=== PATIENT | female | born 1980 | race Caucasian/White ===

== ENCOUNTER 2019-03-26 18:08 | Emergency (ER) | payer OTHER ==
--- NOTE | 2019-03-26 18:36 | PDOC ---
Rapid Medical Evaluation Chief Complaint: Cold Symptoms Time Seen by Provider: 03/26/19 18:31 Medical Evaluation: Allergies Allergy/AdvReac Type Severity Reaction Status Date / Time aztreonam [From Azactam] Allergy Verified 03/26/19 18:31 Cephalosporins Allergy Verified 03/26/19 18:31 clindamycin Allergy Verified 03/26/19 18:31 guaifenesin [From Robitussin] Allergy Verified 03/26/19 18:31 03/26/19 18:31 I have performed a brief in-person evaluation of this patient. The patient presents with a chief complaint of: h/o developmental disability sent in from [facility] for fever, nasal congestion x 1 day. pt given prophylactic Tamiflu from [facility] Pertinent physical exam findings: fever 101.2F I have ordered the following: deferred The patient will proceed to the ED for further evaluation. Discharge Disposition - Diagnosis Fever Qualifiers: Fever type: unspecified Qualified Code(s): R50.9 - Fever, unspecified - Discharge Dispostion Condition at time of disposition: Stable - Referrals - Patient Instructions - Post Discharge Activity
[2019-03-26 18:46] VITALS: BP 132/96; PULSE 120; TEMP 101.1; BMI 21.9
[2019-03-26] MEDS ORDERED: SODIUM CHLORIDE 0.9% 500 ML INFUS.BAG IV ONE (20:31)
[2019-03-26] MEDS ORDERED: ACETAMINOPHEN 1000 MG/100 ML VIAL (NON FORMULARY) IVPB ONE (20:31)
--- NOTE | 2019-03-26 21:08 | PDOC ---
History of Present Illness - General Chief Complaint: Cold Symptoms Stated Complaint: COLD SYMPTOMS/FEVER Time Seen by Provider: 03/26/19 18:31 - History of Present Illness Initial Comments: 39 y/o female with PMH significant for profound mental retardation, obstructive hydrocephalus, spastic quadriparesis cerebral palsy, epilepsy, presenting today with fever of 101 for the past 24 hours. Per nursing director, was noted to have this fever and therefore sent in to the hospital. Pt is non-verbal and not able to report any other symptoms. No nausea/vomiting noted. Pt still able to tolerate PO at meals. No change in stool in ostomy bag. No foul smelling urine noted. Mild cough. Past History - Past Medical History Allergies/Adverse Reactions: Allergies Allergy/AdvReac Type Severity Reaction Status Date / Time aztreonam [From Azactam] Allergy Verified 03/26/19 18:31 Cephalosporins Allergy Verified 03/26/19 18:31 clindamycin Allergy Verified 03/26/19 18:31 guaifenesin [From Robitussin] Allergy Verified 03/26/19 18:31 Anemia: Yes COPD: No Diabetes: Yes GI Disorders: Yes (ILEOSTOMY) Disorders: Yes (chronic UTI) Seizures: Yes Other medical history: CP, diplegia - Surgical History GI Surgery: Yes Neurologic Surgery: Yes (FRUIT CHECKER SHUNT) - Immunization History Immunization Up to Date: Yes - Psycho Social/Smoking Cessation Hx Smoking History: Never smoked Information on smoking cessation initiated: No Hx Alcohol Use: No Drug/Substance Use Hx: No Review of Systems - Review of Systems Comments:: ROS limited 2/2 non verbal patient. GENERAL/CONSTITUTIONAL: Reports fever. RESPIRATORY: Reports congestion. GASTROINTESTINAL: No nausea, vomiting._ SKIN: No rash_ *Physical Exam - Vital Signs Last Vital Signs Temp Pulse Resp BP Pulse Ox 101.1 F H 120 H 16 132/96 99 03/26/19 18:32 03/26/19 18:32 03/26/19 18:32 03/26/19 18:32 03/26/19 20:15 - Physical Exam GENERAL: Awake, no acute distress_ HEAD: No signs of trauma, normoc ephalic, atraumatic _ EYES: PERRLA, sclera anicteric, conjunctiva clear_ ENT: nares patent, oropharynx clear without exudates. No uvular deviation. Moist mucosa. TM's clear and non erythematous bilaterally. NECK: supple, no lymphadenopathy, JVD, or masses_ LUNGS: No distress, diffuse congestion in upper/lower lung west bilaterally HEART: Regular rate and rhythm, normal S1 and S2, no murmurs appreciated, peripheral pulses normal and equal bilaterally._ ABDOMEN: Soft, nontender. Ostomy bag in place with no bleeding or purulent discharge. EXTREMITIES: Atrophied, contracted. NEUROLOGICAL: Unable to assess. SKIN: Warm, Dry, normal turgor, no rashes or lesions noted_ ED Treatment Course - LABORATORY CBC & Chemistry Diagram: 03/26/19 22:00 03/26/19 22:00 - RADIOLOGY Radiology Studies Ordered: Category Date Time Status CHEST X-RAY PORTABLE* [RAD] Stat Radiology 03/26/19 21:03 Ordered - Medications Given in the ED: ED Medications Discontinued Medications Generic Name Dose Route Start Last Admin Trade Name Freq PRN Reason Stop Dose Admin Acetaminophen 1,000 mg 03/26/19 20:31 03/26/19 20:57 Ofirmev Injection - IVPB 03/26/19 20:32 1,000 mg ONCE ONE Administration Sodium Chloride 1,000 ml 03/26/19 20:31 03/26/19 20:57 Normal Saline - IV 03/26/19 20:32 1,000 ml ONCE ONE Administration Medical Decision Making - Medical Decision Making 39F hx of cerebral palsy, epilepsy, profound mental retardation, presenting with fever of 101 over the past 24 hours. -cbc, cmp, lactic -cxr -tylenol, fluids -ua, ucx 03/26/19 21:59 CXR shows no acute infiltrate or intra thoracic pathology. 03/26/19 22:10 Pt signed out to Dr. Roland pending labs. Discharge - Discharge Information Problems reviewed: Yes Clinical Impression/Diagnosis: Fever Qualifiers: Fever type: unspecified Qualified Code(s): R50.9 - Fever, unspecified Condition: Stable Disposition: [facility] - Follow up/Referral Referrals: Benito Ordoñez Jr [Primary Care Provider] - - Patient Discharge Instructions Additional Instructions: You were seen for the evaluation of fever. Flu negative. Urine analysis was negative for an infection. - Post Discharge Activity
[2019-03-26 22:16] LABS: BASO % 0.6 % (0-2.0); EOS % 1.6 % (0-4.5); HEMOGLOBIN 13.8 GM/dL (10.7-15.3); LYMPH % 23.1 % (8-40); MCH 20.2 pg (25.7-33.7); MCHC 31.4 g/dl (32.0-36.0); MEAN CELL VOLUME 64.3 fl (80-96); MEAN PLT VOLUME 8.9 fl (7.5-11.1); MONO % 21.1 % (3.8-10.2); NEUT % 53.6 % (42.8-82.8); PLATELET COUNT 300 K/MM3 (134-434); RBC 6.85 M/mm3 (3.60-5.2); RDW 15.1 % (11.6-15.6); WHITE BLOOD COUNT 7.9 K/mm3 (4.0-10.0)
--- NOTE | 2019-03-26 22:26 | PDOC ---
*Physical Exam - Vital Signs Last Vital Signs Temp Pulse Resp BP Pulse Ox 101.1 F H 120 H 16 132/96 99 03/26/19 18:32 03/26/19 18:32 03/26/19 18:32 03/26/19 18:32 03/26/19 20:15 - Physical Exam Received sign out from Dr. Mooney 39 yo F with a hx of developmental disability, profound intellectual disability , obstructive hydrocephalus, epilepsy, spastic quadriparesis, and chronic UTI who presented to the emergency department via EMS from [place] for 1 day of fever at a temperature of 101F with chest congestion. Per the aide, the patient was treated at [facility] with Tamiflu. At the time of sign out, patient had pending labs and studies ED Treatment Course - LABORATORY CBC & Chemistry Diagram: 03/26/19 22:00 03/26/19 22:00 - ADDITIONAL ORDERS Additional order review: 03/26/19 22:00 RBC 6.85 H MCV 64.3 L MCHC 31.4 L RDW 15.1 MPV 8.9 Neutrophils % 53.6 Lymphocytes % 23.1 Monocytes % 21.1 H Eosinophils % 1.6 Basophils % 0.6 - Medications Given in the ED: ED Medications Discontinued Medications Generic Name Dose Route Start Last Admin Trade Name Freq PRN Reason Stop Dose Admin Acetaminophen 1,000 mg 03/26/19 20:31 03/26/19 20:57 Ofirmev Injection - IVPB 03/26/19 20:32 1,000 mg ONCE ONE Administration Sodium Chloride 1,000 ml 03/26/19 20:31 03/26/19 20:57 Normal Saline - IV 03/26/19 20:32 1,000 ml ONCE ONE Administration Medical Decision Making - Medical Decision Making Laboratory Tests 03/26/19 03/26/19 03/26/19 20:00 22:00 22:00 WBC 7.9 RBC 6.85 H Hgb 13.8 Hct 44.0 MCV 64.3 L MCH 20.2 L MCHC 31.4 L RDW 15.1 Plt Count 300 MPV 8.9 Absolute Neuts (auto) 4.2 Neutrophils % 53.6 Neutrophils % (Manual) 55.6 Band Neutrophils % 0.9 Lymphocytes % 23.1 Lymphocytes % (Manual) 16.7 Monocytes % 21.1 H Monocytes % (Manual) 12 H Eosinophils % 1.6 Eosinophils % (Manual) 6.5 H Basophils % 0.6 Basophils % (Manual) 0.0 Myelocytes % (Man) 0 Promyelocytes % (Man) 0 Blast Cells % (Manual) 0 Nucleated RBC % 0 Metamyelocytes 0 Hypochromia 2+ Polychromasia 0 Poikilocytosis 3+ Anisocytosis 3+ Microcytosis 3+ Macrocytosis 0 Sodium 138 Potassium 3.9 Chloride 108 H Carbon Dioxide 21 Anion Gap 9 BUN 11.6 Creatinine 0.9 Est GFR (CKD-EPI)AfAm 94.01 Est GFR (CKD-EPI)NonAf 81.11 Random Glucose 129 H Lactic Acid Calcium 8.5 Total Bilirubin 0.1 L AST 40 H ALT 44 Alkaline Phosphatase 110 Total Protein 7.6 Albumin 3.2 L Urine Color Urine Appearance Urine pH Ur Specific [place] Urine Protein Urine Glucose (UA) Urine Ketones Urine Blood Urine Nitrite Urine Bilirubin Urine Urobilinogen Ur Leukocyte Esterase Urine WBC (Auto) Urine RBC (Auto) Urine Casts (Auto) U Epithel Cells (Auto) Urine Bacteria (Auto) Influenza A (Rapid) Negative Influenza B (Rapid) Negative 03/26/19 03/27/19 22:00 00:05 WBC RBC Hgb Hct MCV MCH MCHC RDW Plt Count MPV Absolute Neuts (auto) Neutrophils % Neutrophils % (Manual) Band Neutrophils % Lymphocytes % Lymphocytes % (Manual) Monocytes % Monocytes % (Manual) Eosinophils % Eosinophils % (Manual) Basophils % Basophils % (Manual) Myelocytes % (Man) Promyelocytes % (Man) Blast Cells % (Manual) Nucleated RBC % Metamyelocytes Hypochromia Polychromasia Poikilocytosis Anisocytosis Microcytosis Macrocytosis Sodium Potassium Chloride Carbon Dioxide Anion Gap BUN Creatinine Est GFR (CKD-EPI)AfAm Est GFR (CKD-EPI)NonAf Random Glucose Lactic Acid 1.7 Calcium Total Bilirubin AST ALT Alkaline Phosphatase Total Protein Albumin Urine Color Yellow Urine Appearance Clear Urine pH 6.0 Ur Specific [place] 1.012 Urine Protein Negative Urine Glucose (UA) Negative Urine Ketones Negative Urine Blood Trace Urine Nitrite Negative Urine Bilirubin Negative Urine Urobilinogen 0.2 Ur Leukocyte Esterase Negative Urine WBC (Auto) 3 Urine RBC (Auto) 10 Urine Casts (Auto) 2 U Epithel Cells (Auto) 12.0 Urine Bacteria (Auto) 32.3 Influenza A (Rapid) Influenza B (Rapid) UA is negative for UTI. CXR within normal limits. Patient likely has viral syndrome on the account her influenza tests are negative. Will discharge back to [facility]. Discharge - Discharge Information Problems reviewed: Yes Clinical Impression/Diagnosis: Fever Qualifiers: Fever type: unspecified Qualified Code(s): R50.9 - Fever, unspecified Condition: Stable [facility] - Follow up/Referral Referrals: Benito Ordoñez Jr [Primary Care Provider] - - Patient Discharge Instructions Additional Instructions: You were seen for the evaluation of fever. Flu negative. Urine analysis was negative for an infection. - Post Discharge Activity
[2019-03-26 22:53] LABS: ALBUMIN 3.2 g/dl (3.4-5.0); BILIRUBIN,TOTAL 0.1 mg/dL (0.2-1); BLOOD UREA NITROGEN 11.6 mg/dL (7-18); CALCIUM 8.5 mg/dL (8.5-10.1); CREATININE 0.9 mg/dL (0.55-1.3); POTASSIUM 3.9 mmol/L (3.5-5.1); TOT PROT 7.6 g/dl (6.4-8.2)
[2019-03-26 23:36] LABS: ANISOCYTOSIS 3+; MACROCYTOSIS 0
--- NOTE | 2019-03-26 23:59 | PDOC ---
Documentation entered by Kamlesh De La Paz SCRIBE, acting as scribe for Cherelle Recio MD. Cherelle Recio MD: This documentation has been prepared by the Ana Cristina rene Xhesika, SCRIBE, under my direction and personally reviewed by me in its entirety. I confirm that the documentation accurately reflects all work, treatment, procedures, and medical decision making performed by me. Attending Attestation - Resident Resident Name: Napoleon Mooney - ED Attending Attestation I have performed the following: I have examined & evaluated the patient, The case was reviewed & discussed with the resident, I agree w/resident's findings & plan, Exceptions are as noted - HPI HPI: 03/26/19 21:23 The patient is a 39 year old female with a significant PMH of developmental disability, profound mental retardation, obstructive hydrocephalus, spastic quadriparesis cerebral palsy, epilepsy, and chronic UTI who presents to the emergency department [facility] from [place] for 1 day of fever 101 and chest congestion. Per aide at bedside the patient was treated at [facility] [place] with Tamiflu. Aide denies decreased activity. Aide denies chest pain, shortness of breath, headache and dizziness. Denies chills, nausea, vomiting, diarrhea and constipation. Allergies: Aztreonam, Cephalosporins, clindamycin, guaifenesin Past surgical history: REIMBURSEMENT REPRESENTATIVE shunt - Physicial Exam PE: 03/26/19 23:56 39-year-old female who lives at the [facility] [place] facility presents with URI symptoms and fever Head no acute trauma Lungs clear to auscultation bilaterally CVS tachycardia Abdomen soft Skin warm and dry Neuro alert, nonverbal at baseline - Medical Decision Making 03/26/19 23:58 39-year-old female sent from [place] to evaluate for URI symptoms and fever Negative influenza swab, she had already been given Tamiflu eye regimen Chest x-ray did not show any infiltrates CBC is unremarkable with no leukocytosis pt is 96% pulse on on room air,lungs cta b/l 03/26/19 23:59 Chemistries reviewed and glucose is equal to 127, AST slightly elevated at 40 but her electrolytes and liver function tests and renal function are unremarkable 03/27/19 00:00 Lactic acid is normal at 1.7 03/27/19 00:50 UA is negative: there is no leukocytes, no nitrates ,no significant WBCs Discussed the findings with the attendant who accompanied the resident from [facility] We will discharge back to [facility] Viral syndrome, URI
[2019-03-27 00:37] LABS: HYALINE CASTS 2 /lpf (0-8); URINE APPEARANCE CLEAR; URINE BACTERIA 32.3 /hpf (NEGATIVE); URINE BILIRUBIN NEGATIVE (NEGATIVE); URINE COLOR YELLOW; URINE GLUCOSE (UA) NEGATIVE (NEGATIVE); URINE KETONE NEGATIVE (NEGATIVE); URINE LEUK ESTERASE NEGATIVE (NEGATIVE); URINE NITRITE NEGATIVE (NEGATIVE); URINE PROTEIN NEGATIVE (NEGATIVE); URINE RBC 10 /hpf (0-4); URINE UROBILINOGEN 0.2 mg/dL (0.2-1.0); URINE WBC 3 /hpf (0-5)
== END 2019-03-27 01:39 ==
LOC: JER 18:08 → SUPCPDRO 18:08 → JER 03-27 01:39
DX: J06.9 Acute upper respiratory infection, unspecified (principal); B97.89 Other viral agents as the cause of diseases classified elsewhere; G80.0 Spastic quadriplegic cerebral palsy; F73 Profound intellectual disabilities; G40.909 Epilepsy, unspecified, not intractable, without status epilepticus; G91.1 Obstructive hydrocephalus; Z87.440 Personal history of urinary (tract) infections; Z93.2 Ileostomy status; Z98.2 Presence of cerebrospinal fluid drainage device
CPT/HCPCS: 36415; 71045-TC-FY; 80053; 81003; 83605; 85025; 87086; 87186; 87804; 99283-25; J0131

== ENCOUNTER 2021-03-12 14:44 | Emergency (ER) | payer OTHER ==
[2021-03-12 15:14] VITALS: TEMP 98.6; BMI 19.7
[2021-03-12 20:31] VITALS: BP 130/86; PULSE 98
== END 2021-03-12 18:30 | disposition home or self-care (01) ==
LOC: JER 14:44
DX: T82.594A Other mechanical complication of infusion catheter, initial encounter (principal)
CPT/HCPCS: 99283-25

== ENCOUNTER 2021-08-17 12:59 | Inpatient (IN) | payer OTHER ==
[2021-08-17] MEDS ORDERED: ACETAMINOPHEN 1000 MG/100 ML BAG IVPB ONE (13:52)
[2021-08-17] MEDS ORDERED: ACETAMINOPHEN INJECTION 100 ML IVPB ONE (13:54)
[2021-08-17] MEDS ORDERED: IBUPROFEN 800 MG/8 ML IJ IVPB ONE ×2 (13:59→14:12)
[2021-08-17] MEDS ORDERED: SODIUM CHLORIDE 1,000 ML IV ONE (14:00)
[2021-08-17] MEDS ORDERED: DEXAMETHASONE SOD PHOSPHATE 4 MG/1 ML VIAL IVPUSH ONE (14:27)
[2021-08-17] MEDS ORDERED: DEXAMETHASONE SOD PHOSPHATE 4 MG/1 ML VIAL ONE (14:42)
[2021-08-17 14:55] LABS: INR 1.24 (0.83-1.09); PROTHROMBIN TIME (PATIENT) 14.3 SEC (9.7-13.0)
[2021-08-17 14:57] LABS: ACTIVATED PTT 44.8 SECONDS (25.2-36.5)
[2021-08-17 15:00] LABS: VENOUS BASE EXCESS -1.6 mmol/L (-2-2); VENOUS PCO2 50.6 mmHg (38-52); VENOUS PH 7.316 (7.310-7.410)
[2021-08-17 15:06] LABS: LACTIC ACID 2.4 mmol/L (0.4-2.0)
[2021-08-17 15:10] LABS: BASO % 0.5 % (0-2.0); HEMATOCRIT 42.8 % (32.4-45.2); HEMOGLOBIN 13.3 GM/dL (10.7-15.3); LYMPH % 5.8 % (8-40); MCHC 31.1 g/dl (32.0-36.0); MEAN CELL VOLUME 58.4 fl (80-96); MEAN PLT VOLUME 9.2 fl (7.5-11.1); MONO % 10.8 % (3.8-10.2); NEUT % 82.9 % (42.8-82.8); PLATELET COUNT 433 10^3/uL (134-434); RDW 20.9 % (11.6-15.6)
[2021-08-17 15:12] LABS: MCH 18.2 pg (25.7-33.7); RBC 7.32 M/mm3 (3.60-5.2)
[2021-08-17 15:13] LABS: EPI CELLS 5 /uL (0-25.1); HYALINE CASTS 1 /uL (0-3.1); URINE APPEARANCE CLEAR; URINE BACTERIA 2576 /uL (0-1359); URINE BILIRUBIN NEGATIVE (NEGATIVE); URINE COLOR YELLOW; URINE GLUCOSE (UA) NEGATIVE (NEGATIVE); URINE KETONE TRACE (NEGATIVE); URINE LEUK ESTERASE 2+ (NEGATIVE); URINE NITRITE POSITIVE (NEGATIVE); URINE PROTEIN 1+ (NEGATIVE); URINE RBC 39 /uL (0-23.9); URINE UROBILINOGEN 0.2 mg/dL (0.2-1.0); URINE WBC 332 /uL (0-25.8)
[2021-08-17] MEDS ORDERED: VANCOMYCIN 1 GM in D5W (PRE-DOCKED) 1,000 MG/250 ML IVPB ONE (15:35)
[2021-08-17] MEDS ORDERED: AZITHROMYCIN IVPB 500 MG in DEXTROSE 5%-WATER - 250 ML IVPB ONE (15:35)
[2021-08-17 15:38] LABS: CALCIUM 9.7 mg/dL (8.5-10.1)
[2021-08-17 15:39] LABS: ALBUMIN 3.5 g/dl (3.4-5.0)
[2021-08-17 15:41] LABS: BILIRUBIN,DIRECT 0.1 mg/dL (0.0-0.2)
[2021-08-17 15:42] LABS: BILIRUBIN,TOTAL 0.2 mg/dL (0.2-1); CREATININE 0.6 mg/dL (0.55-1.3); TOT PROT 8.8 g/dl (6.4-8.2)
[2021-08-17] MEDS ORDERED: AZITHROMYCIN IVPB 500 MG/250 ML BAG IVPB ONE (16:00)
[2021-08-17] MEDS ORDERED: VANCOMYCIN 1 GRAM (PRE-DOCKED) 1,000 MG/250 ML BAG IVPB ONE (16:16)
[2021-08-17] MEDS ORDERED: SODIUM CHLORIDE 1,000 ML IV SCH (16:45)
[2021-08-17 17:23] LABS: ANISOCYTOSIS 3+; MACROCYTOSIS 1+; OVALOCYTE 1+; PLATELET ESTIMATE INCREASED; TARGET CELLS 1+
[2021-08-17] MEDS ORDERED: dilTIAZem HCL 30 MG TABLET ONE ×2 (18:09→18:14)
[2021-08-17] MEDS ORDERED: dilTIAZem HCL 60 MG TABLET ONE ×2 (18:09→18:13)
[2021-08-17] MEDS: INSULIN SLIDING SCALE (NOVOLOG) 1 VIAL SQ SCH (22:54)
[2021-08-18] MEDS: INSULIN SLIDING SCALE (NOVOLOG) 1 VIAL SQ SCH ×4 (07:40→22:55)
[2021-08-18 07:50] LABS: MCHC 31.1 g/dl (32.0-36.0); MEAN PLT VOLUME 9.2 fl (7.5-11.1); PLATELET COUNT 357 10^3/uL (134-434); RDW 21.2 % (11.6-15.6); WHITE BLOOD COUNT 20.9 K/mm3 (4.0-10.0)
[2021-08-18 07:51] LABS: MCH 18.4 pg (25.7-33.7); RBC 7.63 M/mm3 (3.60-5.2)
[2021-08-18 08:20] LABS: ALBUMIN 3.2 g/dl (3.4-5.0); BLOOD UREA NITROGEN 17.5 mg/dL (7-18); CALCIUM 9.7 mg/dL (8.5-10.1); MAGNESIUM 2.3 mg/dL (1.8-2.4)
[2021-08-18 08:22] LABS: CREATININE 0.4 mg/dL (0.55-1.3)
[2021-08-18 08:23] LABS: BILIRUBIN,TOTAL 0.3 mg/dL (0.2-1); PHOSPHOROUS 3.1 mg/dL (2.5-4.9)
[2021-08-18 08:25] LABS: TOT PROT 8.6 g/dl (6.4-8.2)
[2021-08-18] MEDS ORDERED: DEXAMETHASONE SOD PHOSPHATE 10 MG/1 ML VIAL ONE (08:46)
[2021-08-18] MEDS ORDERED: ENOXAPARIN NA (PORCINE) 30 MG/0.3 ML DISP.SYRIN SQ ONE (08:46)
[2021-08-18] MEDS: DEXAMETHASONE SOD PHOSPHATE 10 MG/1 ML VIAL IVPUSH SCH (09:36)
[2021-08-18] MEDS: ENOXAPARIN NA (PORCINE) 30 MG/0.3 ML DISP.SYRIN SQ SCH (09:36)
[2021-08-18 09:48] LABS: ANISOCYTOSIS 3+; MACROCYTOSIS 0; OVALOCYTE 1+; TARGET CELLS 1+
[2021-08-18] MEDS ORDERED: VANCOMYCIN 1 GM in D5W (PRE-DOCKED) 1,000 MG/250 ML IVPB SCH (10:00)
[2021-08-18] MEDS ORDERED: ACETAMINOPHEN 1000 MG/100 ML BAG IVPB PRN ×2 (11:51→13:18)
[2021-08-18 13:00] VITALS: BMI 14.1
[2021-08-18] MEDS ORDERED: REMDESIVIR 200 MG in SODIUM CHLORIDE 250 ML IVPB ONE (13:00)
[2021-08-18] MEDS ORDERED: SODIUM CHLORIDE IVPB ONE (13:45)
[2021-08-18] MEDS ORDERED: REMDESIVIR IVPB ONE (13:45)
[2021-08-19] MEDS: INSULIN SLIDING SCALE (NOVOLOG) 1 VIAL SQ SCH ×4 (06:38→23:27)
[2021-08-19 09:03] LABS: BASO % 0.1 % (0-2.0); HEMATOCRIT 35.6 % (32.4-45.2); LYMPH % 7.6 % (8-40); MCHC 30.8 g/dl (32.0-36.0); MEAN CELL VOLUME 59.3 fl (80-96); NEUT % 85.3 % (42.8-82.8); PLATELET COUNT 366 10^3/uL (134-434); RDW 21.1 % (11.6-15.6)
[2021-08-19 09:15] LABS: MCH 18.3 pg (25.7-33.7)
[2021-08-19 09:16] LABS: ALBUMIN 2.5 g/dl (3.4-5.0); CALCIUM 8.9 mg/dL (8.5-10.1)
[2021-08-19 09:19] LABS: BLOOD UREA NITROGEN 33.1 mg/dL (7-18)
[2021-08-19 09:21] LABS: CREATININE 0.5 mg/dL (0.55-1.3)
[2021-08-19 09:22] LABS: TOT PROT 6.9 g/dl (6.4-8.2)
[2021-08-19 09:23] LABS: BILIRUBIN,TOTAL 0.3 mg/dL (0.2-1)
[2021-08-19] MEDS: DEXAMETHASONE SOD PHOSPHATE 10 MG/1 ML VIAL IVPUSH SCH (10:48)
[2021-08-19] MEDS: ENOXAPARIN NA (PORCINE) 30 MG/0.3 ML DISP.SYRIN SQ SCH (10:53)
[2021-08-19] MEDS: POLYETHYLENE GLYCOL (HEALTHYLAX) 3350 17 GM PACKET GT SCH (10:54)
[2021-08-19] MEDS: SODIUM CHLORIDE IVPB SCH (15:05)
[2021-08-19] MEDS: REMDESIVIR IVPB SCH (15:05)
[2021-08-19] MEDS: DEXTROSE 5% IVPB SCH (17:23)
[2021-08-19] MEDS: GENTAMICIN IVPB SCH (17:23)
[2021-08-19] MEDS: WATER IVPB SCH (17:23)
[2021-08-20] MEDS ORDERED: INSULIN (NOVOLOG) ASPART 100 UNITS/ML 10ML VIAL ONE ×2 (06:59→10:34)
[2021-08-20] MEDS: INSULIN SLIDING SCALE (NOVOLOG) 1 VIAL SQ SCH ×4 (07:03→21:39)
[2021-08-20] MEDS: ENOXAPARIN NA (PORCINE) 30 MG/0.3 ML DISP.SYRIN SQ SCH (10:08)
[2021-08-20] MEDS: DEXAMETHASONE SOD PHOSPHATE 10 MG/1 ML VIAL IVPUSH SCH (10:08)
[2021-08-20] MEDS: POLYETHYLENE GLYCOL (HEALTHYLAX) 3350 17 GM PACKET GT SCH (10:09)
[2021-08-20 10:51] LABS: BASO % 0.1 % (0-2.0); HEMATOCRIT 36.4 % (32.4-45.2); HEMOGLOBIN 11.2 GM/dL (10.7-15.3); LYMPH % 9.1 % (8-40); MCHC 30.9 g/dl (32.0-36.0); MEAN PLT VOLUME 8.7 fl (7.5-11.1); MONO % 7.8 % (3.8-10.2); PLATELET COUNT 347 10^3/uL (134-434); RBC 6.27 M/mm3 (3.60-5.2); RDW 20.7 % (11.6-15.6); WHITE BLOOD COUNT 11.3 K/mm3 (4.0-10.0)
[2021-08-20 10:52] LABS: MCH 17.9 pg (25.7-33.7)
[2021-08-20 11:20] LABS: CALCIUM 9.2 mg/dL (8.5-10.1)
[2021-08-20 11:21] LABS: ALBUMIN 2.7 g/dl (3.4-5.0); BLOOD UREA NITROGEN 29.2 mg/dL (7-18)
[2021-08-20 11:23] LABS: CREATININE 0.4 mg/dL (0.55-1.3)
[2021-08-20 11:25] LABS: BILIRUBIN,TOTAL 0.2 mg/dL (0.2-1); TOT PROT 6.9 g/dl (6.4-8.2)
[2021-08-20] MEDS: SODIUM CHLORIDE IVPB SCH (14:07)
[2021-08-20] MEDS: DEXTROSE 5% IVPB SCH (14:07)
[2021-08-20] MEDS: GENTAMICIN IVPB SCH (14:07)
[2021-08-20] MEDS: REMDESIVIR IVPB SCH (14:07)
[2021-08-20] MEDS: WATER IVPB SCH (14:07)
[2021-08-21] MEDS: INSULIN SLIDING SCALE (NOVOLOG) 1 VIAL SQ SCH ×4 (06:21→21:39)
[2021-08-21] MEDS: DEXAMETHASONE SOD PHOSPHATE 10 MG/1 ML VIAL IVPUSH SCH (09:48)
[2021-08-21] MEDS: POLYETHYLENE GLYCOL (HEALTHYLAX) 3350 17 GM PACKET GT SCH (09:48)
[2021-08-21] MEDS: ENOXAPARIN NA (PORCINE) 30 MG/0.3 ML DISP.SYRIN SQ SCH (09:48)
[2021-08-21] MEDS: REMDESIVIR IVPB SCH (14:01)
[2021-08-21] MEDS: SODIUM CHLORIDE IVPB SCH (14:01)
[2021-08-21] MEDS: GENTAMICIN IVPB SCH (14:01)
[2021-08-21] MEDS: DEXTROSE 5% IVPB SCH (14:01)
[2021-08-21] MEDS: WATER IVPB SCH (14:01)
[2021-08-21] MEDS ORDERED: INSULIN (NOVOLOG) ASPART 100 UNITS/ML 10ML VIAL ONE (21:27)
[2021-08-22] MEDS: INSULIN SLIDING SCALE (NOVOLOG) 1 VIAL SQ SCH ×4 (07:01→21:36)
[2021-08-22] MEDS: DEXAMETHASONE SOD PHOSPHATE 10 MG/1 ML VIAL IVPUSH SCH (11:12)
[2021-08-22] MEDS: ENOXAPARIN NA (PORCINE) 30 MG/0.3 ML DISP.SYRIN SQ SCH (11:13)
[2021-08-22] MEDS: POLYETHYLENE GLYCOL (HEALTHYLAX) 3350 17 GM PACKET GT SCH (11:13)
[2021-08-22] MEDS: SODIUM CHLORIDE IVPB SCH (14:12)
[2021-08-22] MEDS: REMDESIVIR IVPB SCH (14:12)
[2021-08-23] MEDS: INSULIN SLIDING SCALE (NOVOLOG) 1 VIAL SQ SCH ×4 (06:43→21:56)
[2021-08-23] MEDS: ENOXAPARIN NA (PORCINE) 30 MG/0.3 ML DISP.SYRIN SQ SCH (09:37)
[2021-08-23] MEDS: POLYETHYLENE GLYCOL (HEALTHYLAX) 3350 17 GM PACKET GT SCH (09:37)
[2021-08-23] MEDS: DEXAMETHASONE SOD PHOSPHATE 10 MG/1 ML VIAL IVPUSH SCH (09:37)
[2021-08-23 12:11] LABS: HEMATOCRIT 43.7 % (32.4-45.2); HEMOGLOBIN 13.5 GM/dL (10.7-15.3); MCHC 30.9 g/dl (32.0-36.0); MEAN CELL VOLUME 58.1 fl (80-96); MEAN PLT VOLUME 8.7 fl (7.5-11.1); PLATELET COUNT 395 10^3/uL (134-434)
[2021-08-23 12:17] LABS: MCH 17.9 pg (25.7-33.7); RBC 7.52 M/mm3 (3.60-5.2)
[2021-08-23 12:28] LABS: BLOOD UREA NITROGEN 24.1 mg/dL (7-18); CALCIUM 9.3 mg/dL (8.5-10.1)
[2021-08-23 12:29] LABS: ALBUMIN 2.9 g/dl (3.4-5.0)
[2021-08-23 12:32] LABS: CREATININE 0.4 mg/dL (0.55-1.3)
[2021-08-23 12:33] LABS: BILIRUBIN,TOTAL 0.3 mg/dL (0.2-1); TOT PROT 7.2 g/dl (6.4-8.2)
[2021-08-23 14:05] LABS: ANISOCYTOSIS 3+; MACROCYTOSIS 0; TARGET CELLS 1+
[2021-08-23] MEDS ORDERED: INSULIN (NOVOLOG) ASPART 100 UNITS/ML 10ML VIAL ONE (21:14)
[2021-08-24] MEDS: INSULIN SLIDING SCALE (NOVOLOG) 1 VIAL SQ SCH ×4 (07:02→21:48)
[2021-08-24] MEDS: DEXAMETHASONE SOD PHOSPHATE 10 MG/1 ML VIAL IVPUSH SCH (10:10)
[2021-08-24] MEDS: POLYETHYLENE GLYCOL (HEALTHYLAX) 3350 17 GM PACKET GT SCH (10:10)
[2021-08-24] MEDS: ENOXAPARIN NA (PORCINE) 30 MG/0.3 ML DISP.SYRIN SQ SCH (10:10)
[2021-08-24] MEDS ORDERED: INSULIN (NOVOLOG) ASPART 100 UNITS/ML 10ML VIAL ONE (11:44)
[2021-08-25] MEDS: INSULIN SLIDING SCALE (NOVOLOG) 1 VIAL SQ SCH ×4 (06:01→23:01)
[2021-08-25] MEDS: DEXAMETHASONE SOD PHOSPHATE 10 MG/1 ML VIAL IVPUSH SCH (10:35)
[2021-08-25] MEDS: MULTIVIT-MINERALS ORAL LIQUID GT SCH (11:19)
[2021-08-25] MEDS: POLYETHYLENE GLYCOL (HEALTHYLAX) 3350 17 GM PACKET GT SCH (11:19)
[2021-08-26] MEDS: INSULIN SLIDING SCALE (NOVOLOG) 1 VIAL SQ SCH ×4 (06:45→22:32)
[2021-08-26] MEDS: DEXAMETHASONE SOD PHOSPHATE 10 MG/1 ML VIAL IVPUSH SCH (10:40)
[2021-08-26] MEDS: POLYETHYLENE GLYCOL (HEALTHYLAX) 3350 17 GM PACKET GT SCH (11:31)
[2021-08-26] MEDS: MULTIVIT-MINERALS ORAL LIQUID GT SCH (11:31)
[2021-08-26] MEDS ORDERED: INSULIN (NOVOLOG) ASPART 100 UNITS/ML 10ML VIAL ONE ×2 (12:00→22:31)
[2021-08-27] MEDS: INSULIN SLIDING SCALE (NOVOLOG) 1 VIAL SQ SCH ×4 (06:37→23:02)
[2021-08-27] MEDS: ENOXAPARIN NA (PORCINE) 30 MG/0.3 ML DISP.SYRIN SQ SCH (10:26)
[2021-08-27] MEDS: POLYETHYLENE GLYCOL (HEALTHYLAX) 3350 17 GM PACKET GT SCH (10:27)
[2021-08-27] MEDS: MULTIVIT-MINERALS ORAL LIQUID GT SCH (10:27)
[2021-08-28] MEDS: INSULIN SLIDING SCALE (NOVOLOG) 1 VIAL SQ SCH ×4 (06:25→21:35)
[2021-08-28] MEDS: ENOXAPARIN NA (PORCINE) 30 MG/0.3 ML DISP.SYRIN SQ SCH (10:21)
[2021-08-28] MEDS: POLYETHYLENE GLYCOL (HEALTHYLAX) 3350 17 GM PACKET GT SCH (10:21)
[2021-08-28] MEDS: MULTIVIT-MINERALS ORAL LIQUID GT SCH (10:22)
[2021-08-28] MEDS: AMINO ACIDS/PROTEIN HYDROLYS 30 ML LIQUID.PKT GT SCH (17:27)
[2021-08-29] MEDS: INSULIN SLIDING SCALE (NOVOLOG) 1 VIAL SQ SCH ×4 (08:03→21:06)
[2021-08-29] MEDS: AMINO ACIDS/PROTEIN HYDROLYS 30 ML LIQUID.PKT GT SCH ×2 (11:33→17:46)
[2021-08-29] MEDS: POLYETHYLENE GLYCOL (HEALTHYLAX) 3350 17 GM PACKET GT SCH (11:34)
[2021-08-29] MEDS: ENOXAPARIN NA (PORCINE) 30 MG/0.3 ML DISP.SYRIN SQ SCH (11:34)
[2021-08-29] MEDS: MULTIVIT-MINERALS ORAL LIQUID GT SCH (11:34)
[2021-08-30] MEDS: INSULIN SLIDING SCALE (NOVOLOG) 1 VIAL SQ SCH ×4 (06:15→22:15)
[2021-08-30] MEDS: AMINO ACIDS/PROTEIN HYDROLYS 30 ML LIQUID.PKT GT SCH ×2 (09:00→17:10)
[2021-08-30] MEDS: ENOXAPARIN NA (PORCINE) 30 MG/0.3 ML DISP.SYRIN SQ SCH (09:27)
[2021-08-30] MEDS: MULTIVIT-MINERALS ORAL LIQUID GT SCH (09:28)
[2021-08-30] MEDS: POLYETHYLENE GLYCOL (HEALTHYLAX) 3350 17 GM PACKET GT SCH (09:28)
[2021-08-31] MEDS: INSULIN SLIDING SCALE (NOVOLOG) 1 VIAL SQ SCH ×3 (06:55→16:47)
[2021-08-31] MEDS: AMINO ACIDS/PROTEIN HYDROLYS 30 ML LIQUID.PKT GT SCH ×2 (08:47→17:07)
[2021-08-31] MEDS: ENOXAPARIN NA (PORCINE) 30 MG/0.3 ML DISP.SYRIN SQ SCH (09:11)
[2021-08-31] MEDS: POLYETHYLENE GLYCOL (HEALTHYLAX) 3350 17 GM PACKET GT SCH (09:12)
[2021-08-31] MEDS: MULTIVIT-MINERALS ORAL LIQUID GT SCH (09:12)
[2021-08-31 14:46] VITALS: BP 110/72; PULSE 76; TEMP 98.9
== END 2021-08-31 17:59 | disposition home or self-care (01) | DRG 720 ==
LOC: JER 12:59 → JERBED 15:47 → MERGE 15:47 → J6S 08-18 11:43
PROVIDERS: ADMIT Internal Medicine
PROC: XW033E5 Introduction of Remdesivir Anti-infective into Peripheral Vein, Percutaneous Approach, New Technology Group 5 (ICD-10-PCS; principal; 2021-08-18)
DX: A41.89 Other specified sepsis (principal); U07.1 COVID-19; J96.01 Acute respiratory failure with hypoxia; J96.02 Acute respiratory failure with hypercapnia; L89.153 Pressure ulcer of sacral region, stage 3; J12.82 Pneumonia due to coronavirus disease 2019; R53.2 Functional quadriplegia; F73 Profound intellectual disabilities; Z93.1 Gastrostomy status; R64 Cachexia; N39.0 Urinary tract infection, site not specified; E87.2 Acidosis; D56.9 Thalassemia, unspecified; Z98.2 Presence of cerebrospinal fluid drainage device; G40.909 Epilepsy, unspecified, not intractable, without status epilepticus; B96.20 Unspecified Escherichia coli [E. coli] as the cause of diseases classified elsewhere; G80.9 Cerebral palsy, unspecified
CPT/HCPCS: 0241U-QW; 36415; 71045-TC-FY; 76705-TC; 80053; 81003; 82248; 82550; 82728; 82803; 82962; 83540; 83550; 83605; 83615; 83735; 84100; 84484; 85025; 85379; 85610; 85730; 86140; 87040; 87086; 87186; 87899; 93005; 93010; 99285-25; C9399; C9803-CS; J1100; U0003; U0005

== ENCOUNTER 2022-03-30 07:52 | Inpatient (IN) | payer OTHER ==
[2022-03-30] MEDS ORDERED: LACTATED RINGERS SOLUTION 1,000 ML/1,000 ML INFUS.BAG IV STA ×2 (09:02→11:02)
[2022-03-30] MEDS ORDERED: ACETAMINOPHEN 1000 MG/100 ML BAG IVPB ONE (09:18)
[2022-03-30] MEDS ORDERED: ACETAMINOPHEN INJECTION 100 ML IVPB ONE (09:18)
[2022-03-30 10:22] LABS: VENOUS BASE EXCESS -3.5 mmol/L (-2-2); VENOUS O2 SATURATION 64.8 % (70-80); VENOUS PCO2 33.3 mmHg (38-52); VENOUS PH 7.404 (7.310-7.410)
[2022-03-30 10:27] LABS: HEMATOCRIT 38.6 % (32.4-45.2); HEMOGLOBIN 12.4 GM/dL (10.7-15.3); MCH 20.3 pg (25.7-33.7); MCHC 32.1 g/dl (32.0-36.0); MEAN CELL VOLUME 63.2 fl (80-96); MEAN PLT VOLUME 9.5 fl (7.5-11.1); PLATELET COUNT 201 10^3/uL (134-434); RBC 6.11 M/mm3 (3.60-5.2); RDW 16.9 % (11.6-15.6)
[2022-03-30 10:51] LABS: LACTIC ACID 3.9 mmol/L (0.4-2.0)
[2022-03-30 10:55] LABS: CHLORIDE 102 mmol/L (98-107); SODIUM 133 mmol/L (136-145)
[2022-03-30 10:57] LABS: EPI CELLS >36 /uL (0-25.1); HYALINE CASTS 2 /uL (0-3.1); PH,URINE 5.5 (5.0-8.0); URINE APPEARANCE TURBID; URINE BACTERIA >9,000 /uL (0-1359); URINE BILIRUBIN NEGATIVE (NEGATIVE); URINE COLOR YELLOW; URINE GLUCOSE (UA) NEGATIVE (NEGATIVE); URINE KETONE NEGATIVE (NEGATIVE); URINE LEUK ESTERASE 3+ (NEGATIVE); URINE NITRITE POSITIVE (NEGATIVE); URINE PROTEIN 3+ (NEGATIVE); URINE UROBILINOGEN 0.2 mg/dL (0.2-1.0); URINE WBC 4138 /uL (0-25.8)
[2022-03-30 10:58] LABS: ANION GAP 11 MMOL/L (8-16); BLOOD UREA NITROGEN 33.2 mg/dL (7-18); CO2 21 mmol/L (21-32); GLUCOSE,RANDOM 65 mg/dL (74-106)
[2022-03-30 11:01] LABS: CREATININE 0.5 mg/dL (0.55-1.3); SGOT/AST 98 U/L (15-37); SGPT/ALT 86 U/L (13-61)
[2022-03-30 11:02] LABS: BILIRUBIN,TOTAL 1.3 mg/dL (0.2-1)
[2022-03-30] MEDS ORDERED: IMIPENEM/CILASTATIN SODIUM 500 MG in SODIUM CHLORIDE 100 ML IV ONE (11:03)
[2022-03-30] MEDS ORDERED: VANCOMYCIN 1 GM in D5W (PRE-DOCKED) 1,000 MG/250 ML IVPB ONE (11:03)
[2022-03-30] MEDS ORDERED: VANCOMYCIN/WATER FOR INJ (PEG) 1,000 MG/200 ML BAG IVPB ONE (11:06)
[2022-03-30 11:07] LABS: ALBUMIN 2.5 g/dl (3.4-5.0); ALK PHOS 467 U/L (45-117); ANISOCYTOSIS 0; HELMET CELLS 0; HOWELL-JOLLY BODIES 0; MACROCYTOSIS 0; OVALOCYTE 0; ROULEAU 0; SICKELED CELLS 0; TARGET CELLS 0; TEAR DROP CELLS 0; TOT PROT 6.1 g/dl (6.4-8.2); TOXIC GRANULATION 0
[2022-03-30 11:14] LABS: URINE RBC 562.4 /uL (0-23.9); YEAST NEGATIVE (NEGATIVE)
[2022-03-30] MEDS ORDERED: LACTATED RINGERS SOLUTION 1,000 ML/1,000 ML INFUS.BAG IV SCH (13:15)
[2022-03-30] MEDS ORDERED: DEXTROSE 50%-WATER 25 GM/50 ML DISP.SYRIN ONE (14:05)
[2022-03-30] MEDS ORDERED: DEXTROSE 50%-WATER - 25 GM/50 ML VIAL IVPUSH ONE (14:12)
[2022-03-30 14:27] LABS: INR 1.52 (0.83-1.09); PROTHROMBIN TIME (PATIENT) 17.5 SEC (9.7-13.0)
[2022-03-30 14:30] LABS: ACTIVATED PTT 21.6 SECONDS (25.2-36.5)
[2022-03-30 14:54] LABS: LACTIC ACID 2.2 mmol/L (0.4-2.0)
[2022-03-30] MEDS ORDERED: DEXTROSE 5%-NORMAL SALINE 1,000 ML IV SCH ×2 (17:30→19:24)
[2022-03-30 19:15] LABS: LACTIC ACID 3.3 mmol/L (0.4-2.0)
[2022-03-30] MEDS ORDERED: SODIUM CHLORIDE 0.9% 250 ML INFUS.BAG IV ONE (19:25)
[2022-03-30] MEDS ORDERED: HEPARIN NA (PORCINE) 5,000 UNITS/ML 1ML VIAL ONE (20:43)
[2022-03-30] MEDS: HEPARIN NA (PORCINE) 5,000 UNITS/ML 1ML VIAL SQ SCH (21:05)
[2022-03-30] MEDS ORDERED: ERTAPENEM SODIUM 1 GM in SODIUM CHLORIDE 50 ML IVPB ONE (22:00)
[2022-03-31] MEDS ORDERED: HEPARIN NA (PORCINE) 5,000 UNITS/ML 1ML VIAL ONE (06:10)
[2022-03-31] MEDS: HEPARIN NA (PORCINE) 5,000 UNITS/ML 1ML VIAL SQ SCH ×3 (06:22→22:29)
[2022-03-31 06:35] LABS: HEMATOCRIT 38.5 % (32.4-45.2); HEMOGLOBIN 11.9 GM/dL (10.7-15.3); MEAN CELL VOLUME 63.6 fl (80-96); PLATELET COUNT 136 10^3/uL (134-434); RBC 6.06 M/mm3 (3.60-5.2); RDW 17.4 % (11.6-15.6)
[2022-03-31 06:47] LABS: INR 1.64 (0.83-1.09); PROTHROMBIN TIME (PATIENT) 18.9 SEC (9.7-13.0)
[2022-03-31 06:50] LABS: ACTIVATED PTT 32.4 SECONDS (25.2-36.5)
[2022-03-31 06:54] LABS: CALCIUM 7.9 mg/dL (8.5-10.1)
[2022-03-31 06:55] LABS: ALBUMIN 2.1 g/dl (3.4-5.0); BLOOD UREA NITROGEN 16.5 mg/dL (7-18); MAGNESIUM 1.6 mg/dL (1.8-2.4)
[2022-03-31 06:57] LABS: MCH 19.7 pg (25.7-33.7)
[2022-03-31 06:58] LABS: CREATININE 0.4 mg/dL (0.55-1.3); PHOSPHOROUS 2.3 mg/dL (2.5-4.9)
[2022-03-31 06:58] LABS: WHITE BLOOD COUNT 34.4 K/mm3 (4.0-10.0)
[2022-03-31 06:59] LABS: BILIRUBIN,TOTAL 0.6 mg/dL (0.2-1); TOT PROT 5.6 g/dl (6.4-8.2)
[2022-03-31] MEDS ORDERED: ACETAMINOPHEN 1000 MG/100 ML BAG IVPB PRN ×3 (07:53→17:15)
[2022-03-31] MEDS ORDERED: dilTIAZem HCL 50 MG/10 ML - 10 ML VIAL IVPUSH PRN (07:54)
[2022-03-31] MEDS: DEXTROSE 5%-NORMAL SALINE 1,000 ML IV SCH ×2 (10:39→15:53)
[2022-03-31 10:46] LABS: ANISOCYTOSIS 0; MACROCYTOSIS 0
[2022-03-31] MEDS ORDERED: KCL 10 MEQ IVPB 10 MEQ/100 ML INFUS.BAG IVPB ONE ×2 (12:29→14:08)
[2022-03-31] MEDS: KCL 10 MEQ IVPB 10 MEQ/100 ML INFUS.BAG IVPB SCH ×2 (12:35→14:06)
[2022-03-31] MEDS ORDERED: MEROPENEM 1 GM VIAL (RESTRICTED TO ID) IVPB ONE (14:08)
[2022-03-31] MEDS: MEROPENEM 500 MG in DEXTROSE 5%-WATER 100 ML IVPB SCH ×2 (14:09→17:07)
[2022-03-31] MEDS ORDERED: MEROPENEM 500 MG VIAL (RESTRICTED TO ID) IVPB ONE (14:09)
[2022-03-31] MEDS ORDERED: AMINO ACIDS 4.25%/D5W 1,000 ML IV SCH (17:00)
[2022-03-31] MEDS ORDERED: DEXTROSE 5%-NORMAL SALINE 1,000 ML IV SCH (17:15)
[2022-03-31] MEDS ORDERED: INSULIN (LEVEMIR) 100 UNITS/ML UNITS SQ ONE (17:58)
[2022-03-31] MEDS ORDERED: dilTIAZem HCL 30 MG TABLET GT SCH (22:00)
[2022-03-31] MEDS: INSULIN SLIDING SCALE (NOVOLOG) 1 VIAL SQ SCH (22:31)
[2022-04-01] MEDS: MEROPENEM 500 MG in DEXTROSE 5%-WATER 100 ML IVPB SCH ×3 (03:32→17:27)
[2022-04-01] MEDS: HEPARIN NA (PORCINE) 5,000 UNITS/ML 1ML VIAL SQ SCH ×3 (06:29→22:11)
[2022-04-01] MEDS: INSULIN SLIDING SCALE (NOVOLOG) 1 VIAL SQ SCH ×4 (06:29→21:32)
[2022-04-01] MEDS ORDERED: VANCOMYCIN/HEPARIN - ANTIBIOTIC LOCK 3 ML (RESTRICTED TO ID) IVPUSH SCH ×2 (10:30→10:45)
[2022-04-01 13:33] LABS: HEMATOCRIT 36.5 % (32.4-45.2); MCHC 30.2 g/dl (32.0-36.0); MEAN CELL VOLUME 63.6 fl (80-96); RBC 5.74 M/mm3 (3.60-5.2); RDW 17.3 % (11.6-15.6); WHITE BLOOD COUNT 28.3 K/mm3 (4.0-10.0)
[2022-04-01 13:42] LABS: MCH 19.2 pg (25.7-33.7)
[2022-04-01 13:44] LABS: MEAN PLT VOLUME 9.1 fl (7.5-11.1); PLATELET COUNT 172 10^3/uL (134-434)
[2022-04-01 14:00] LABS: CALCIUM 8.2 mg/dL (8.5-10.1)
[2022-04-01 14:01] LABS: ALBUMIN 2.1 g/dl (3.4-5.0); BLOOD UREA NITROGEN 15.7 mg/dL (7-18); MAGNESIUM 1.9 mg/dL (1.8-2.4)
[2022-04-01 14:04] LABS: CREATININE 0.4 mg/dL (0.55-1.3); PHOSPHOROUS 2.1 mg/dL (2.5-4.9)
[2022-04-01 14:05] LABS: BILIRUBIN,TOTAL 0.3 mg/dL (0.2-1); TOT PROT 5.5 g/dl (6.4-8.2)
[2022-04-01] MEDS ORDERED: POTASSIUM CHLORIDE ORAL LIQUID 20 MEQ/15 ML GT ONE (14:12)
[2022-04-01] MEDS ORDERED: KCL 10 MEQ IVPB 10 MEQ/100 ML INFUS.BAG IVPB SCH (14:15)
[2022-04-01 14:22] LABS: ANISOCYTOSIS 2+; MACROCYTOSIS 0
[2022-04-02] MEDS: MEROPENEM 500 MG in DEXTROSE 5%-WATER 100 ML IVPB SCH ×3 (03:02→17:35)
[2022-04-02] MEDS: HEPARIN NA (PORCINE) 5,000 UNITS/ML 1ML VIAL SQ SCH ×3 (06:43→22:27)
[2022-04-02] MEDS: INSULIN SLIDING SCALE (NOVOLOG) 1 VIAL SQ SCH ×4 (06:48→22:26)
[2022-04-02 10:33] LABS: HEMATOCRIT 40.5 % (32.4-45.2); HEMOGLOBIN 12.5 GM/dL (10.7-15.3); MCHC 30.8 g/dl (32.0-36.0); MEAN CELL VOLUME 63.8 fl (80-96); MEAN PLT VOLUME 9.7 fl (7.5-11.1); RBC 6.35 M/mm3 (3.60-5.2); RDW 17.5 % (11.6-15.6)
[2022-04-02 10:43] LABS: MCH 19.6 pg (25.7-33.7)
[2022-04-02 11:04] LABS: CALCIUM 8.7 mg/dL (8.5-10.1)
[2022-04-02] MEDS: PANTOPRAZOLE SODIUM 40 MG VIAL IVPUSH SCH (11:04)
[2022-04-02] MEDS: ASCORBIC ACID 500 MG/5 ML UNIT DOSE CUP GT SCH (11:04)
[2022-04-02 11:05] LABS: ALBUMIN 2.2 g/dl (3.4-5.0); BLOOD UREA NITROGEN 16.4 mg/dL (7-18)
[2022-04-02 11:08] LABS: CREATININE 0.4 mg/dL (0.55-1.3)
[2022-04-02 11:09] LABS: BILIRUBIN,TOTAL 0.3 mg/dL (0.2-1)
[2022-04-02 11:15] LABS: ANISOCYTOSIS 2+; MACROCYTOSIS 0
[2022-04-02 11:24] LABS: PLATELET COUNT 138 10^3/uL (134-434)
[2022-04-03] MEDS: MEROPENEM 500 MG in DEXTROSE 5%-WATER 100 ML IVPB SCH ×3 (01:00→17:05)
[2022-04-03] MEDS: HEPARIN NA (PORCINE) 5,000 UNITS/ML 1ML VIAL SQ SCH ×3 (06:07→22:46)
[2022-04-03] MEDS: INSULIN SLIDING SCALE (NOVOLOG) 1 VIAL SQ SCH ×4 (06:07→22:49)
[2022-04-03] MEDS: ASCORBIC ACID 500 MG/5 ML UNIT DOSE CUP GT SCH (10:10)
[2022-04-03] MEDS: PANTOPRAZOLE SODIUM 40 MG VIAL IVPUSH SCH (10:10)
[2022-04-03 10:11] LABS: HEMATOCRIT 37.2 % (32.4-45.2); HEMOGLOBIN 12.1 GM/dL (10.7-15.3); MCH 20.2 pg (25.7-33.7); MCHC 32.4 g/dl (32.0-36.0); MEAN CELL VOLUME 62.5 fl (80-96); RBC 5.96 M/mm3 (3.60-5.2); RDW 17.2 % (11.6-15.6); WHITE BLOOD COUNT 19.2 K/mm3 (4.0-10.0)
[2022-04-03 10:28] LABS: ALBUMIN 2.4 g/dl (3.4-5.0); CALCIUM 8.3 mg/dL (8.5-10.1); MAGNESIUM 1.9 mg/dL (1.8-2.4)
[2022-04-03 10:31] LABS: CREATININE 0.5 mg/dL (0.55-1.3)
[2022-04-03 10:32] LABS: TOT PROT 6.4 g/dl (6.4-8.2)
[2022-04-03 10:33] LABS: BILIRUBIN,TOTAL 0.2 mg/dL (0.2-1)
[2022-04-03 10:38] LABS: PLATELET COUNT 251 10^3/uL (134-434)
[2022-04-03 11:18] LABS: ANISOCYTOSIS 0; HELMET CELLS 0; HOWELL-JOLLY BODIES 0; MACROCYTOSIS 0; OVALOCYTE 0; ROULEAU 0; SICKELED CELLS 0; TARGET CELLS 0; TEAR DROP CELLS 0; TOXIC GRANULATION 0
[2022-04-03 12:01] LABS: PHOSPHOROUS 2.4 mg/dL (2.5-4.9)
[2022-04-03 18:43] VITALS: BMI 15.0
[2022-04-04] MEDS: MEROPENEM 500 MG in DEXTROSE 5%-WATER 100 ML IVPB SCH ×3 (01:06→17:37)
[2022-04-04] MEDS: HEPARIN NA (PORCINE) 5,000 UNITS/ML 1ML VIAL SQ SCH ×3 (05:11→21:25)
[2022-04-04] MEDS: INSULIN SLIDING SCALE (NOVOLOG) 1 VIAL SQ SCH ×4 (07:05→21:29)
[2022-04-04] MEDS: ASCORBIC ACID 500 MG/5 ML UNIT DOSE CUP GT SCH (10:39)
[2022-04-04] MEDS: PANTOPRAZOLE SODIUM 40 MG VIAL IVPUSH SCH (10:39)
[2022-04-04] MEDS: ZINC SULFATE 220 MG CAPSULE (FP) PO SCH (10:39)
[2022-04-04] MEDS: MULTIVITAMINS (DAILY MVI) TABLET (FP) PO SCH (10:40)
[2022-04-04 12:01] LABS: CALCIUM 8.6 mg/dL (8.5-10.1)
[2022-04-04 12:02] LABS: ALBUMIN 2.6 g/dl (3.4-5.0); BLOOD UREA NITROGEN 21.3 mg/dL (7-18)
[2022-04-04 12:05] LABS: CREATININE 0.4 mg/dL (0.55-1.3)
[2022-04-04 12:07] LABS: BILIRUBIN,TOTAL 0.3 mg/dL (0.2-1); TOT PROT 6.7 g/dl (6.4-8.2)
[2022-04-04 12:40] LABS: HEMATOCRIT 39.9 % (32.4-45.2); HEMOGLOBIN 12.4 GM/dL (10.7-15.3); MCHC 31.1 g/dl (32.0-36.0); MEAN CELL VOLUME 63.2 fl (80-96); MEAN PLT VOLUME 8.7 fl (7.5-11.1); PLATELET COUNT 154 10^3/uL (134-434); RBC 6.32 M/mm3 (3.60-5.2); RDW 17.3 % (11.6-15.6); WHITE BLOOD COUNT 19.2 K/mm3 (4.0-10.0)
[2022-04-04 12:51] LABS: MCH 19.7 pg (25.7-33.7)
[2022-04-04 14:05] LABS: ANISOCYTOSIS 0; MACROCYTOSIS 0
[2022-04-04] MEDS ORDERED: SODIUM PHOSPHATE - 0 MM in SODIUM CHLORIDE 250 ML IVPB ONE (15:47)
[2022-04-04] MEDS ORDERED: SODIUM PHOSPHATE - 15 MM in SODIUM CHLORIDE 250 ML IVPB ONE (16:02)
[2022-04-04] MEDS ORDERED: MEROPENEM 500 MG VIAL (RESTRICTED TO ID) IVPB ONE (17:39)
[2022-04-05] MEDS: MEROPENEM 500 MG in DEXTROSE 5%-WATER 100 ML IVPB SCH ×3 (02:41→17:12)
[2022-04-05] MEDS: HEPARIN NA (PORCINE) 5,000 UNITS/ML 1ML VIAL SQ SCH ×3 (06:31→21:27)
[2022-04-05] MEDS: INSULIN SLIDING SCALE (NOVOLOG) 1 VIAL SQ SCH ×4 (06:41→22:27)
[2022-04-05 08:59] LABS: HEMATOCRIT 36.9 % (32.4-45.2); HEMOGLOBIN 11.3 GM/dL (10.7-15.3); MCHC 30.8 g/dl (32.0-36.0); MEAN CELL VOLUME 62.9 fl (80-96); MEAN PLT VOLUME 9.8 fl (7.5-11.1); PLATELET COUNT 276 10^3/uL (134-434); RBC 5.87 M/mm3 (3.60-5.2); RDW 16.9 % (11.6-15.6); WHITE BLOOD COUNT 17.5 K/mm3 (4.0-10.0)
[2022-04-05 09:02] LABS: MCH 19.3 pg (25.7-33.7)
[2022-04-05] MEDS: MULTIVITAMINS (DAILY MVI) TABLET (FP) PO SCH (09:11)
[2022-04-05] MEDS: PANTOPRAZOLE SODIUM 40 MG VIAL IVPUSH SCH (09:11)
[2022-04-05] MEDS: ZINC SULFATE 220 MG CAPSULE (FP) PO SCH (09:11)
[2022-04-05] MEDS: ASCORBIC ACID 500 MG/5 ML UNIT DOSE CUP GT SCH (09:11)
[2022-04-05 09:16] LABS: ALBUMIN 2.3 g/dl (3.4-5.0)
[2022-04-05 09:17] LABS: BLOOD UREA NITROGEN 21.7 mg/dL (7-18)
[2022-04-05 09:19] LABS: PHOSPHOROUS 2.9 mg/dL (2.5-4.9)
[2022-04-05 09:20] LABS: CREATININE 0.4 mg/dL (0.55-1.3)
[2022-04-05 09:21] LABS: BILIRUBIN,TOTAL 0.2 mg/dL (0.2-1); TOT PROT 6.1 g/dl (6.4-8.2)
[2022-04-05 09:48] LABS: ANISOCYTOSIS 0; MACROCYTOSIS 0
[2022-04-05] MEDS ORDERED: POLYETHYLENE GLYCOL (HEALTHYLAX) 3350 17 GM PACKET GT PRN (16:37)
[2022-04-05] MEDS: CHOLECALCIFEROL (VIT D SOLUTION) 400 UNIT/1 ML DROPS GT SCH (17:46)
[2022-04-05] MEDS: ATORVASTATIN CA 20 MG TABLET (FP) GT SCH (21:27)
[2022-04-05] MEDS ORDERED: PATIENT'S OWN MEDICATION (NON-FORMULARY) (Argin/Glut/Cahmb/Collag/Mv-Min [Juven Packet] 1 GT SCH (22:00)
[2022-04-06] MEDS: MEROPENEM 500 MG in DEXTROSE 5%-WATER 100 ML IVPB SCH ×3 (01:48→17:27)
[2022-04-06] MEDS: HEPARIN NA (PORCINE) 5,000 UNITS/ML 1ML VIAL SQ SCH ×3 (05:53→22:48)
[2022-04-06] MEDS: ZINC SULFATE 220 MG CAPSULE (FP) GT SCH (05:53)
[2022-04-06] MEDS: FERROUS SO4 300 MG/5 ML ORAL SOLN UNIT DOSE CUPS GT SCH (06:02)
[2022-04-06] MEDS: THIAMINE HCL 100 MG TABLET (FP) NGT SCH (06:02)
[2022-04-06] MEDS: INSULIN SLIDING SCALE (NOVOLOG) 1 VIAL SQ SCH ×4 (06:38→22:47)
[2022-04-06] MEDS ORDERED: PATIENT'S OWN MEDICATION (NON-FORMULARY) (Vit C/Ascorbate Calcium,Sodium [Vitamin C 500 Mg GT SCH (07:00)
[2022-04-06 09:42] LABS: HEMATOCRIT 36.9 % (32.4-45.2); HEMOGLOBIN 11.5 GM/dL (10.7-15.3); MCHC 31.2 g/dl (32.0-36.0); MEAN CELL VOLUME 63.4 fl (80-96); MEAN PLT VOLUME 10.6 fl (7.5-11.1); PLATELET COUNT 345 10^3/uL (134-434); RBC 5.82 M/mm3 (3.60-5.2); RDW 16.7 % (11.6-15.6); WHITE BLOOD COUNT 16.1 K/mm3 (4.0-10.0)
[2022-04-06 09:46] LABS: MCH 19.7 pg (25.7-33.7)
[2022-04-06 09:59] LABS: ALBUMIN 2.7 g/dl (3.4-5.0); CALCIUM 8.6 mg/dL (8.5-10.1); MAGNESIUM 2.2 mg/dL (1.8-2.4)
[2022-04-06 10:02] LABS: CREATININE 0.4 mg/dL (0.55-1.3); PHOSPHOROUS 2.6 mg/dL (2.5-4.9)
[2022-04-06 10:04] LABS: TOT PROT 6.9 g/dl (6.4-8.2)
[2022-04-06 10:07] LABS: BILIRUBIN,TOTAL 0.3 mg/dL (0.2-1)
[2022-04-06] MEDS: PANTOPRAZOLE SODIUM 40 MG VIAL IVPUSH SCH (10:24)
[2022-04-06] MEDS: LACTOBACILLUS ACIDOPHILUS 1 TABLET GT SCH (10:24)
[2022-04-06] MEDS: MULTIVIT-MINERALS ORAL LIQUID GT SCH (10:26)
[2022-04-06] MEDS: ASCORBIC ACID 500 MG/5 ML UNIT DOSE CUP GT SCH (10:26)
[2022-04-06] MEDS: CHOLECALCIFEROL (VIT D SOLUTION) 400 UNIT/1 ML DROPS GT SCH (17:27)
[2022-04-06] MEDS: ATORVASTATIN CA 20 MG TABLET (FP) GT SCH (22:48)
[2022-04-07] MEDS: MEROPENEM 500 MG in DEXTROSE 5%-WATER 100 ML IVPB SCH ×2 (03:37→10:46)
[2022-04-07] MEDS: FERROUS SO4 300 MG/5 ML ORAL SOLN UNIT DOSE CUPS GT SCH (07:04)
[2022-04-07] MEDS: THIAMINE HCL 100 MG TABLET (FP) NGT SCH (07:04)
[2022-04-07] MEDS: HEPARIN NA (PORCINE) 5,000 UNITS/ML 1ML VIAL SQ SCH ×3 (07:04→21:52)
[2022-04-07] MEDS: ZINC SULFATE 220 MG CAPSULE (FP) GT SCH (07:04)
[2022-04-07] MEDS: INSULIN SLIDING SCALE (NOVOLOG) 1 VIAL SQ SCH ×4 (07:18→21:53)
[2022-04-07 09:26] LABS: HEMATOCRIT 35.2 % (32.4-45.2); HEMOGLOBIN 11.3 GM/dL (10.7-15.3); MEAN CELL VOLUME 62.5 fl (80-96); MEAN PLT VOLUME 9.2 fl (7.5-11.1); PLATELET COUNT 292 10^3/uL (134-434); RBC 5.64 M/mm3 (3.60-5.2); RDW 16.6 % (11.6-15.6); WHITE BLOOD COUNT 18.9 K/mm3 (4.0-10.0)
[2022-04-07 09:59] LABS: CALCIUM 8.6 mg/dL (8.5-10.1)
[2022-04-07 10:00] LABS: ALBUMIN 2.6 g/dl (3.4-5.0); BLOOD UREA NITROGEN 27.5 mg/dL (7-18); MAGNESIUM 2.1 mg/dL (1.8-2.4)
[2022-04-07 10:03] LABS: CREATININE 0.4 mg/dL (0.55-1.3); PHOSPHOROUS 2.8 mg/dL (2.5-4.9)
[2022-04-07 10:04] LABS: BILIRUBIN,TOTAL 0.3 mg/dL (0.2-1); TOT PROT 6.8 g/dl (6.4-8.2)
[2022-04-07] MEDS: LACTOBACILLUS ACIDOPHILUS 1 TABLET GT SCH (10:04)
[2022-04-07] MEDS: MULTIVIT-MINERALS ORAL LIQUID GT SCH (10:05)
[2022-04-07] MEDS: ASCORBIC ACID 500 MG/5 ML UNIT DOSE CUP GT SCH (10:12)
[2022-04-07 10:44] LABS: ANISOCYTOSIS 0; MACROCYTOSIS 0
[2022-04-07] MEDS: PANTOPRAZOLE SODIUM 40 MG VIAL IVPUSH SCH (10:46)
[2022-04-07] MEDS: CHOLECALCIFEROL (VIT D SOLUTION) 400 UNIT/1 ML DROPS GT SCH (17:31)
[2022-04-07] MEDS ORDERED: MEROPENEM 1 GM in DEXTROSE 5%-WATER 100 ML IVPB SCH (19:00)
[2022-04-07] MEDS: MEROPENEM 1 GM in DEXTROSE 5%-WATER 100 ML IVPB SCH (19:29)
[2022-04-07] MEDS: ATORVASTATIN CA 20 MG TABLET (FP) GT SCH (21:52)
[2022-04-08] MEDS: MEROPENEM 1 GM in DEXTROSE 5%-WATER 100 ML IVPB SCH ×2 (01:21→09:56)
[2022-04-08] MEDS: HEPARIN NA (PORCINE) 5,000 UNITS/ML 1ML VIAL SQ SCH ×3 (05:21→21:15)
[2022-04-08] MEDS: ZINC SULFATE 220 MG CAPSULE (FP) GT SCH (05:21)
[2022-04-08] MEDS: THIAMINE HCL 100 MG TABLET (FP) NGT SCH (06:16)
[2022-04-08] MEDS: INSULIN SLIDING SCALE (NOVOLOG) 1 VIAL SQ SCH ×4 (06:16→21:15)
[2022-04-08] MEDS: FERROUS SO4 300 MG/5 ML ORAL SOLN UNIT DOSE CUPS GT SCH (06:43)
[2022-04-08] MEDS: PANTOPRAZOLE SODIUM 40 MG VIAL IVPUSH SCH (09:56)
[2022-04-08] MEDS: LACTOBACILLUS ACIDOPHILUS 1 TABLET GT SCH (09:56)
[2022-04-08] MEDS: SIMETHICONE 40 MG/0.6 ML BOTTLE GT PRN (09:57)
[2022-04-08] MEDS: ASCORBIC ACID 500 MG/5 ML UNIT DOSE CUP GT SCH (09:58)
[2022-04-08] MEDS: MULTIVIT-MINERALS ORAL LIQUID GT SCH (09:58)
[2022-04-08] MEDS ORDERED: INSULIN (NOVOLOG) ASPART 100 UNITS/ML 10ML VIAL ONE (10:46)
[2022-04-08 16:07] LABS: EOS % 2.2 % (0-4.5); HEMATOCRIT 35.3 % (32.4-45.2); HEMOGLOBIN 11.2 GM/dL (10.7-15.3); LYMPH % 14.9 % (8-40); MCHC 31.8 g/dl (32.0-36.0); MEAN CELL VOLUME 62.4 fl (80-96); MEAN PLT VOLUME 8.9 fl (7.5-11.1); MONO % 8.2 % (3.8-10.2); NEUT % 73.7 % (42.8-82.8); PLATELET COUNT 375 10^3/uL (134-434); RBC 5.66 M/mm3 (3.60-5.2); RDW 16.9 % (11.6-15.6); WHITE BLOOD COUNT 15.5 K/mm3 (4.0-10.0)
[2022-04-08 16:16] LABS: MCH 19.8 pg (25.7-33.7)
[2022-04-08 16:39] LABS: ALBUMIN 2.7 g/dl (3.4-5.0); BLOOD UREA NITROGEN 29.1 mg/dL (7-18)
[2022-04-08 16:42] LABS: CREATININE 0.4 mg/dL (0.55-1.3)
[2022-04-08 16:44] LABS: BILIRUBIN,TOTAL 0.3 mg/dL (0.2-1); TOT PROT 7.2 g/dl (6.4-8.2)
[2022-04-08] MEDS: HYDROCORTISONE 1% TOPICAL OINT 30 GM TUBE TP PRN (17:18)
[2022-04-08] MEDS: CHOLECALCIFEROL (VIT D SOLUTION) 400 UNIT/1 ML DROPS GT SCH (17:20)
[2022-04-08] MEDS: ATORVASTATIN CA 20 MG TABLET (FP) GT SCH (21:14)
[2022-04-09] MEDS: THIAMINE HCL 100 MG TABLET (FP) NGT SCH (06:31)
[2022-04-09] MEDS: ZINC SULFATE 220 MG CAPSULE (FP) GT SCH (06:31)
[2022-04-09] MEDS: FERROUS SO4 300 MG/5 ML ORAL SOLN UNIT DOSE CUPS GT SCH (06:31)
[2022-04-09] MEDS: HEPARIN NA (PORCINE) 5,000 UNITS/ML 1ML VIAL SQ SCH ×3 (06:31→21:37)
[2022-04-09] MEDS: INSULIN SLIDING SCALE (NOVOLOG) 1 VIAL SQ SCH ×4 (06:34→22:07)
[2022-04-09 09:28] LABS: HEMATOCRIT 35.5 % (32.4-45.2); HEMOGLOBIN 11.4 GM/dL (10.7-15.3); MCH 20.2 pg (25.7-33.7); MEAN CELL VOLUME 63.2 fl (80-96); MEAN PLT VOLUME 9.7 fl (7.5-11.1); PLATELET COUNT 381 10^3/uL (134-434); RBC 5.62 M/mm3 (3.60-5.2)
[2022-04-09] MEDS: LACTOBACILLUS ACIDOPHILUS 1 TABLET GT SCH (09:36)
[2022-04-09] MEDS: MULTIVIT-MINERALS ORAL LIQUID GT SCH (09:37)
[2022-04-09] MEDS: SIMETHICONE 40 MG/0.6 ML BOTTLE GT PRN ×2 (09:37→17:54)
[2022-04-09] MEDS: ASCORBIC ACID 500 MG/5 ML UNIT DOSE CUP GT SCH (09:38)
[2022-04-09] MEDS: PANTOPRAZOLE SODIUM 40 MG VIAL IVPUSH SCH (09:51)
[2022-04-09 09:53] LABS: BLOOD UREA NITROGEN 33.2 mg/dL (7-18)
[2022-04-09 09:56] LABS: ALBUMIN 2.8 g/dl (3.4-5.0); CALCIUM 9.2 mg/dL (8.5-10.1)
[2022-04-09 09:57] LABS: MAGNESIUM 2.2 mg/dL (1.8-2.4)
[2022-04-09 10:00] LABS: CREATININE 0.4 mg/dL (0.55-1.3)
[2022-04-09 10:01] LABS: TOT PROT 7.3 g/dl (6.4-8.2)
[2022-04-09 10:14] LABS: BILIRUBIN,TOTAL 0.4 mg/dL (0.2-1)
[2022-04-09] MEDS ORDERED: KETOCONAZOLE 2 % SHAMPOO 120 ML BOTTLE TP SCH (15:00)
[2022-04-09] MEDS: CHOLECALCIFEROL (VIT D SOLUTION) 400 UNIT/1 ML DROPS GT SCH (17:55)
[2022-04-09] MEDS: ATORVASTATIN CA 20 MG TABLET (FP) GT SCH (21:37)
[2022-04-09] MEDS: HYDROCORTISONE 1% TOPICAL OINT 30 GM TUBE TP PRN (21:39)
[2022-04-10] MEDS: HEPARIN NA (PORCINE) 5,000 UNITS/ML 1ML VIAL SQ SCH ×3 (06:19→21:58)
[2022-04-10] MEDS: THIAMINE HCL 100 MG TABLET (FP) NGT SCH (06:19)
[2022-04-10] MEDS: ZINC SULFATE 220 MG CAPSULE (FP) GT SCH (06:19)
[2022-04-10] MEDS: INSULIN SLIDING SCALE (NOVOLOG) 1 VIAL SQ SCH ×4 (06:34→22:23)
[2022-04-10] MEDS: FERROUS SO4 300 MG/5 ML ORAL SOLN UNIT DOSE CUPS GT SCH (06:37)
[2022-04-10 07:06] LABS: HEMATOCRIT 33.8 % (32.4-45.2); HEMOGLOBIN 10.6 GM/dL (10.7-15.3); MCHC 31.4 g/dl (32.0-36.0); MEAN CELL VOLUME 62.8 fl (80-96); MEAN PLT VOLUME 9.7 fl (7.5-11.1); PLATELET COUNT 416 10^3/uL (134-434); RBC 5.39 M/mm3 (3.60-5.2); RDW 16.4 % (11.6-15.6); WHITE BLOOD COUNT 11.7 K/mm3 (4.0-10.0)
[2022-04-10 07:30] LABS: BLOOD UREA NITROGEN 32.8 mg/dL (7-18)
[2022-04-10 07:33] LABS: CREATININE 0.5 mg/dL (0.55-1.3)
[2022-04-10 08:19] LABS: MCH 19.7 pg (25.7-33.7)
[2022-04-10] MEDS: PANTOPRAZOLE SODIUM 40 MG VIAL IVPUSH SCH (09:44)
[2022-04-10] MEDS: LACTOBACILLUS ACIDOPHILUS 1 TABLET GT SCH (09:44)
[2022-04-10] MEDS: SIMETHICONE 40 MG/0.6 ML BOTTLE GT PRN (09:45)
[2022-04-10] MEDS: MULTIVIT-MINERALS ORAL LIQUID GT SCH (09:45)
[2022-04-10] MEDS: ASCORBIC ACID 500 MG/5 ML UNIT DOSE CUP GT SCH (09:45)
[2022-04-10] MEDS: HYDROCORTISONE 1% TOPICAL OINT 30 GM TUBE TP PRN (09:45)
[2022-04-10] MEDS: CHOLECALCIFEROL (VIT D SOLUTION) 400 UNIT/1 ML DROPS GT SCH (18:04)
[2022-04-10] MEDS: ATORVASTATIN CA 20 MG TABLET (FP) GT SCH (21:58)
[2022-04-11 05:37] VITALS: RESP 20
[2022-04-11] MEDS: ZINC SULFATE 220 MG CAPSULE (FP) GT SCH (06:19)
[2022-04-11] MEDS: HEPARIN NA (PORCINE) 5,000 UNITS/ML 1ML VIAL SQ SCH ×2 (06:19→13:50)
[2022-04-11] MEDS: FERROUS SO4 300 MG/5 ML ORAL SOLN UNIT DOSE CUPS GT SCH (06:19)
[2022-04-11] MEDS: THIAMINE HCL 100 MG TABLET (FP) NGT SCH (06:19)
[2022-04-11] MEDS: INSULIN SLIDING SCALE (NOVOLOG) 1 VIAL SQ SCH ×2 (06:38→11:54)
[2022-04-11] MEDS ORDERED: ACETAMINOPHEN 325 MG TABLET (FP) PO PRN (07:23)
[2022-04-11] MEDS ORDERED: ACETAMINOPHEN 650 MG/20.3 ML ORAL SOLUTION (CUPS) GT PRN ×3 (07:57→09:18)
[2022-04-11] MEDS: LACTOBACILLUS ACIDOPHILUS 1 TABLET GT SCH (10:02)
[2022-04-11] MEDS: MULTIVIT-MINERALS ORAL LIQUID GT SCH (10:03)
[2022-04-11] MEDS: PANTOPRAZOLE SODIUM 40 MG VIAL IVPUSH SCH (10:03)
[2022-04-11] MEDS: ASCORBIC ACID 500 MG/5 ML UNIT DOSE CUP GT SCH (10:03)
[2022-04-11 14:31] VITALS: BP 102/65; PULSE 90; TEMP 98.1
== END 2022-04-11 16:34 | DRG 720 ==
LOC: JER 07:52 → JERBED 14:15 → J6S 03-31 15:10
PROVIDERS: ADMIT Internal Medicine; ATTEND Internal Medicine
DX: A41.51 Sepsis due to Escherichia coli [E. coli] (principal); E43 Unspecified severe protein-calorie malnutrition; F73 Profound intellectual disabilities; R53.2 Functional quadriplegia; L89.154 Pressure ulcer of sacral region, stage 4; R56.9 Unspecified convulsions; Z93.1 Gastrostomy status; K56.41 Fecal impaction; N39.0 Urinary tract infection, site not specified; R65.20 Severe sepsis without septic shock; R64 Cachexia; Z68.1 Body mass index [BMI] 19.9 or less, adult; D72.829 Elevated white blood cell count, unspecified; E87.20 Acidosis, unspecified
CPT/HCPCS: 0241U-QW; 36415; 71045-TC-FY; 74177-TC; 76700-TC; 76775-TC; 80048; 80053; 81003; 82550; 82553; 82803; 82962; 82977; 83036; 83516; 83605; 83735; 84100; 84484; 85025; 85027; 85610; 85730; 86038; 86704; 86803; 86850; 86900; 86901; 87040; 87077; 87086; 87186; 87340; 87517; 93005; 93010; 97161-GP; 99285-25; C9803-CS; J1644; U0003; U0005

== ENCOUNTER 2023-08-02 12:44 | Emergency (ER) | payer OTHER ==
[2023-08-02 13:00] VITALS: RESP 18; TEMP 98.9; BMI 17.2
[2023-08-02 14:10] LABS: POTASSIUM 5.2 mmol/L (3.5-5.1)
[2023-08-02 14:12] LABS: CALCIUM 9.5 mg/dL (8.5-10.1)
[2023-08-02 14:13] LABS: ALBUMIN 3.5 g/dl (3.4-5.0)
[2023-08-02 14:16] LABS: CREATININE 0.6 mg/dL (0.55-1.3)
[2023-08-02 14:17] LABS: BILIRUBIN,TOTAL 0.4 mg/dL (0.2-1); TOT PROT 8.3 g/dl (6.4-8.2)
[2023-08-02 15:12] LABS: BASO % 0.8 % (0-2.0); EOS % 2.4 % (0-4.5); HEMATOCRIT 46.1 % (32.4-45.2); HEMOGLOBIN 14.4 GM/dL (10.7-15.3); LYMPH % 12.3 % (8-40); MCHC 31.2 g/dl (32.0-36.0); MEAN PLT VOLUME 8.8 fl (7.5-11.1); MONO % 10.6 % (3.8-10.2); NEUT % 73.9 % (42.8-82.8); PLATELET COUNT 389 10^3/uL (134-434); RDW 15.5 % (11.6-15.6); WHITE BLOOD COUNT 14.7 K/mm3 (4.0-10.0)
[2023-08-02 15:13] LABS: RBC 7.21 M/mm3 (3.60-5.2)
[2023-08-02 15:28] LABS: POTASSIUM 3.8 mmol/L (3.5-5.1)
[2023-08-02 15:30] LABS: ALBUMIN 3.4 g/dl (3.4-5.0); CALCIUM 9.2 mg/dL (8.5-10.1)
[2023-08-02 15:31] LABS: BLOOD UREA NITROGEN 17.9 mg/dL (7-18)
[2023-08-02 15:34] LABS: CREATININE 0.6 mg/dL (0.55-1.3)
[2023-08-02 15:35] LABS: ANISOCYTOSIS 2+; BILIRUBIN,TOTAL 0.3 mg/dL (0.2-1); MACROCYTOSIS 0; TOT PROT 8.3 g/dl (6.4-8.2)
[2023-08-02] MEDS ORDERED: DALBAVANCIN HCL 500 MG VIAL (RESTRICTED TO ID ONLY) IVPB ONE (16:42)
[2023-08-02] MEDS ORDERED: MIDAZOLAM HCL 2 MG/2 ML SINGLE DOSE VIAL ONE (17:03)
[2023-08-02] MEDS: MIDAZOLAM HCL 2 MG/2 ML SINGLE DOSE VIAL IVPUSH ONE (17:10)
[2023-08-02 17:21] VITALS: BP 131/86; PULSE 107
[2023-08-02] MEDS: DALBAVANCIN HCL 1,500 MG in DEXTROSE 5%-WATER - 500 ML IVPB ONE (18:19)
== END 2023-08-02 21:11 | disposition home or self-care (01) ==
LOC: JER 12:44
PROC: 3E03329 Introduction of Other Anti-infective into Peripheral Vein, Percutaneous Approach (ICD-10-PCS; principal; 2023-08-02)
PROC: 3E033GC Introduction of Other Therapeutic Substance into Peripheral Vein, Percutaneous Approach (ICD-10-PCS; 2023-08-02)
DX: N61.1 Abscess of the breast and nipple (principal)
CPT/HCPCS: 36415; 80053; 85025; 87040; 87070; 87186; 87205; 99284-25; J0875